=== PATIENT | male | born 1955 | race Caucasian/White ===

== ENCOUNTER 2020-03-07 07:03 | Day surgery (SDC) | payer OTHER, SELFPAY ==
[~2020-03-07] VITALS: Ht 193 cm; Wt 106.6 kg
[2020-03-07] MEDS ORDERED: SIMETHICONE 40 MG/0.6 ML ML ONE (07:33)
[2020-03-07] MEDS ORDERED: MEPERIDINE HCL/PF 100 MG/ML AMP ONE (07:34)
[2020-03-07] MEDS ORDERED: MIDAZOLAM HCL 5 MG/5 ML VIAL ONE (07:34)
[2020-03-07] MEDS ORDERED: DIPHENHYDRAMINE INJ 50 MG/ML VIAL ONE (09:17)
[2020-03-07 09:55] VITALS: BP_SYST 126
== END 2020-03-07 12:00 | disposition home or self-care (01) ==
LOC: SDS 07:03 → SMU 07:04 → SDS 12:00
PROVIDERS: ATTEND Internal Medicine Gastroenterology
DX: R19.5 Other fecal abnormalities (principal); Z11.59 Encounter for screening for other viral diseases; K29.50 Unspecified chronic gastritis without bleeding; K62.1 Rectal polyp; K29.80 Duodenitis without bleeding; K64.8 Other hemorrhoids; K22.2 Esophageal obstruction; K57.30 Diverticulosis of large intestine without perforation or abscess without bleeding
CPT/HCPCS: 36415; 43239; 43248; 45380; 87081; 88305; 88312; 88313; 99152; 99153; C9803; G0378; J1200; J2175; J2250

== ENCOUNTER 2021-05-18 11:04 | Outpatient (CLI) | payer OTHER | END 2021-05-18 21:08 | disposition home or self-care (01) | LOC: SMI 11:04 | PROVIDERS: ATTEND Family Medicine | DX: M79.89 Other specified soft tissue disorders (principal); G57.82 Other specified mononeuropathies of left lower limb; M25.872 Other specified joint disorders, left ankle and foot | CPT/HCPCS: 73721 ==